=== PATIENT | female | born 1990 | race Caucasian/White ===

== ENCOUNTER 2022-02-01 11:11 | Emergency (ER) | payer BC ==
[~2022-02-01] VITALS: Ht 167.6 cm; Wt 63.5 kg
[2022-02-01] MEDS ORDERED: IV NORMAL SALINE 1000 ML BAG IV ONE (11:15)
--- NOTE | 2022-02-01 11:31 | NUR ---
PT IS IN ROOM #1B. DR BURNS EVALUATED THE PT.
[2022-02-01 12:06] LABS: HEMATOCRIT 37.7 % (31.2-41.9); MEAN CORPUSCULAR HEMOGLOBIN 30.8 uug (24.7-32.8); PLATELET COUNT (AUTO) 276 K/uL (179-408)
[2022-02-01 12:09] LABS: CREATININE 0.8 mg/dL (0.6-1.3); POTASSIUM 3.9 mmol/L (3.5-5.1)
--- NOTE | 2022-02-01 13:41 | NUR ---
PT WAS D/C.d TO HOME. D/C INSTRUCTIONS GIVEN TO THE PT BY DR BURNS.
[2022-02-01 13:43] VITALS: BP 127/69
== END 2022-02-01 13:44 | disposition home or self-care (01) ==
LOC: ER 11:11
DX: R55 Syncope and collapse (principal)
CPT/HCPCS: 36415; 85025; 93005; A4663; J7040